=== PATIENT | female | born 1950 | race Hispanic/Latino ===

== ENCOUNTER 2020-10-20 15:02 | Inpatient (IN) | payer MEDICARE ==
[~2020-10-20 15:02] MED LIST: GASTROGRAFIN 30 ML BOT ONE
[2020-10-20] MEDS ORDERED: Norepinephrine 8 MG/0.9% NS 250 ML ONE (15:35)
[2020-10-20 16:02] LABS: Hemoglobin 15.9 g/dL (12.0-16.0); Mean Corpuscular HGB CONC 32.8 g/dL (32.0-36.0); Mean Corpuscular Hemoglobin 35.1 pg (27.0-31.0); Mean Platelet Volume 6.8 fL (7.4-10.4); Platelet Count 816 thou/uL (130-400); RBC Distribution Width 12.9 % (11.5-14.5); Red Blood Cell (RBC) Count 4.54 mill/uL (4.20-5.40); White Blood Cell (WBC) Count 17.6 thou/uL (4.8-10.8)
[2020-10-20 16:19] LABS: Band 27 % (5-11); Lymphocytes 1 % (21-51); MDiff Complete? YES; Macrocytosis SLIGHT = 6-15 cells (100X) (0-5/hpf); Monocytes 1 % (0-10); Neutrophil 67 % (42-75); Platelet Morphology Comment Appears Increased; Reactive Lymphocytes 4 % (0-10)
[2020-10-20 16:20] LABS: ALT (SGPT) 30 U/L (8-55); AST (SGOT) 20 U/L (5-34); Albumin 2.8 g/dL (3.4-4.8); Alkaline Phosphatase 69 U/L (40-110); Anion Gap 17 mmol/L (10-20); BUN (Urea Nitrogen) 26 mg/dL (9.8-20.1); Bilirubin, Total 0.8 mg/dL (0.2-1.2); Calc. Creatinine Clearance 0 mL/min (70-130); Calcium 8.6 mg/dL (7.8-10.44); Carbon Dioxide 18 mmol/L (23-31); Chloride 105 mmol/L (98-107); Globulin 2.2 g/dL (2.4-3.5); Glucose 95 mg/dL (83-110); Potassium 3.5 mmol/L (3.5-5.1); Sodium 136 mmol/L (136-145)
[2020-10-20] MEDS ORDERED: Fentanyl 100 MCG/2 ML VIAL ONE ×3 (16:24→20:25)
[2020-10-20] MEDS ORDERED: Fentanyl CADD 100 ML IVPB SCH (16:30)
[2020-10-20 17:28] LABS: SARS-CoV-2 NAA Rapid Test Not Detected (NotDetected)
[2020-10-20] MEDS ORDERED: Fentanyl BOLUS 250 ML IVPB PRN (21:00)
[2020-10-20] MEDS ORDERED: Ondansetron PF 4 MG/2 ML Vial IVP PRN (23:11)
[2020-10-20] MEDS ORDERED: Acetaminophen 325 MG TAB PO PRN (23:11)
[2020-10-21 00:15] VITALS: TEMP 97.3
[2020-10-21] MEDS ORDERED: Morphine 4 MG/ML VIAL ONE ×3 (01:40→16:05)
[2020-10-21] MEDS ORDERED: Lorazepam 2 MG/ML VIAL ONE ×3 (01:40→16:05)
[2020-10-21] MEDS: Lorazepam 2 MG/ML VIAL SLOW IVP PRN ×3 (01:47→16:45)
[2020-10-21] MEDS: Morphine 4 MG/ML VIAL SLOW IVP PRN ×3 (01:47→16:45)
[2020-10-21] MEDS ORDERED: Acetaminophen 650 MG Suppository PR PRN (08:07)
[2020-10-21] MEDS ORDERED: hydrALAZINE 20 MG/ML VIAL SLOW IVP PRN (08:07)
[2020-10-21] MEDS ORDERED: Hydrocerin (Eucerin) Cream 120 gm Jar TOP PRN (08:07)
[2020-10-21] MEDS ORDERED: Sodium Chloride 0.65% Nasal 44 ML BOT EA NARE PRN (08:07)
[2020-10-21] MEDS ORDERED: Artificial Tear Sol 15 ML BOT EA EYE PRN (08:07)
[2020-10-21] MEDS ORDERED: Metoclopramide HCl 10 MG/2 ML VIAL IVP PRN (08:07)
[2020-10-21] MEDS ORDERED: diphenhydrAMINE 50 MG/ML VIAL IVP PRN (08:07)
[2020-10-21] MEDS ORDERED: Bisacodyl 10 MG SUPP PR PRN (08:07)
[2020-10-21 12:50] VITALS: BP 106/63
== END 2020-10-21 16:47 | disposition hospice, inpatient (51) | DRG 871 ==
LOC: ERS 15:02 → ERHOLD 21:23
PROVIDERS: ADMIT Internal Medicine; ATTEND Internal Medicine
PROC: 02HV33Z Insertion of Infusion Device into Superior Vena Cava, Percutaneous Approach (ICD-10-PCS; principal; 2020-10-20)
PROC: B548ZZA Ultrasonography of Superior Vena Cava, Guidance (ICD-10-PCS; 2020-10-20)
PROC: 3E033XZ Introduction of Vasopressor into Peripheral Vein, Percutaneous Approach (ICD-10-PCS; 2020-10-20)
DX: A41.9 Sepsis, unspecified organism (principal); R65.21 Severe sepsis with septic shock; K85.90 Acute pancreatitis without necrosis or infection, unspecified; J69.0 Pneumonitis due to inhalation of food and vomit; Z66 Do not resuscitate; Z51.5 Encounter for palliative care; N39.0 Urinary tract infection, site not specified; G93.40 Encephalopathy, unspecified; C34.90 Malignant neoplasm of unspecified part of unspecified bronchus or lung; C79.31 Secondary malignant neoplasm of brain; R19.8 Other specified symptoms and signs involving the digestive system and abdomen; F17.200 Nicotine dependence, unspecified, uncomplicated; M54.9 Dorsalgia, unspecified; Z20.822 Contact with and (suspected) exposure to COVID-19; G89.29 Other chronic pain; Z90.49 Acquired absence of other specified parts of digestive tract; Z90.721 Acquired absence of ovaries, unilateral; Z91.041 Radiographic dye allergy status
CPT/HCPCS: 36415; 36556; 71045; 74018; 83605; 93005; 96365; 96366; 96375; 96376; 99292; J2060; J2270; J3010; Q9963; U0002; U0005